=== PATIENT | male | born 1980 | race Hispanic/Latino ===

== ENCOUNTER 2017-08-09 16:29 | Emergency (ER) | payer OTHER ==
[~2017-08-09] VITALS: Ht 172.7 cm; Wt 104.5 kg
[2017-08-09 16:44] VITALS: BP 185/73; PULSE 100; RESP 16; O2SAT 97
--- NOTE | 2017-08-09 18:15 | ED.REPORT ---
HPI-Eye Problem Date of Service Aug 09, 2017 ED Provider: Lakeisha Willams History of Present Illness: 29-year-old male here for a right eye foreign body. He was walking today and is windy and he felt something fly into his eye. He has been trying to remove it with flushes and Q-tips and he has not been able to get it out. He sees a piece of white lint. Minimal eye pain. No visual disturbances. Nursing Notes Stated Complaint: SMALL PARTICLE IMBEDDED IN R/EYE Chief Complaint: Eye Nursing Notes Reviewed: Yes Allergies: Coded Allergies: No Known Allergies (Verified Allergy, Unknown, 08/09/17) Scheduled Erythromycin Ophth Oint (Erythromycin Ophth Oint) 3.5 Gm Oint...g. 1 APPL OP QID General Time Seen by MD: 17:46 Chief Complaint Right eye affected Hx Obtained From: Patient Arrived By: Walk-in Sudden in Onset?: Yes Onset Occurred: 1 - 4 hours ago Symptom Duration: Since onset Progression Since Onset: Unchanged Severity: Current: No pain currently Severity: Maximum: No pain Pertinent Negative: Pt denies other symptoms Recent Healthcare: No recent doctor visit Past Medical History Past Medical History denies Review of Systems Basic Review of Systems Respiratory: No shortness of breath, No cough, No wheeze Cardiovascular: No chest pain, No dyspnea on exertion, No orthopnea, No parox noct dyspnea, No palpitations GI: No abdominal pain, No anorexia, No nausea, No vomiting : No dysuria, No frequency Musculoskeletal: No extremity swelling, No extremity pain, Full range of motion , Joints NL Psychiatric: Normal thought content Eyes: Reports: Eye pain right Complete sys rev & neg: except as marked. Physical Exam Initial Vital Signs Vital Signs (First) Date Time Temp Pulse Resp B/P Pulse Ox O2 Delivery O2 Flow Rate FiO2 08/09/17 16:44 36.6 100 16 185/73 97 Initial VS: Reviewed, Vital signs normal General / Const: Well-developed, Well-nourished ENT: Mucous membranes moist, Conjunctiva normal, No scleral icterus Neck: Supple, Non-tender, Full range of motion Respiratory: Breath sounds normal, Clear to auscultation, No respiratory distress Cardiovascular: Regular rate & rhythm, Heart sounds normal, Intact distal pulses Skin: Warm, Dry, No cyanosis Neurologic: Alert, Oriented, Nonfocal Psychiatric: Mood/affect normal, Behavior normal, Normal thought content Head / Eyes: Normocephalic, PERRL, EOMI, No nystagmus, No periorbital redness, No periorbital swelling, No photophobia, No scleral icterus, Conjunctiva NL, Cornea clear, No corneal abrasion, Eyelids NL, Visual acuity NL No foreign body noted with initial exam. Patient looks in mirror and states that the foreign body noticed today is gone. fluoroscien stain, pinpoint small abrasion noted in Center of eye. No proparacaine was used per patient preference Re-Eval/Medical Decision Med Decision/Clinical Course Foreign body in eye, gone by time of evaluation. Corneal abrasion on examination. No visual changes. Discharge & Departure Shift Change Sign-Out Procedures: Results discussed Response to Therapy: Improved Primary Impression: Corneal abrasion Encounter type: initial encounter Laterality: right Qualified Code: S05.01XA - Injury of conjunctiva and corneal abrasion without foreign body, right eye, initial encounter Disposition: Home Discharge Condition All VS Reviewed: Yes Condition: Stable Patient Instructions: Corneal Abrasion (ED) Additional Instructions: Use topical antibiotics as prescribed. If you start getting eye pain, drainage or changes in vision need to follow up with the web merchant immediately or come to the ER. Otherwise follow-up with your PCP for recheck in a few days. Referrals: NOPCP (PCP) MEDHAT ANDERSON MD EDSupervising Provider for APC: Karri Landry MD Attending Statement I saw and evaluated the patient in conjunction with the GARMENT FOLDER. I agree with the plan and findings as documented above. In brief, 37-year-old male presenting to the ED for evaluation of a foreign body sensation in his eye. Well appearing, no acute distress. Nonlabored respirations. Good peripheral perfusion. RRR. No pain with extraocular movements , no obvious foreign body noted on examination, visual acuity intact. Fluorescein stain demonstrates small corneal abrasion. Given antibiotic drops as per above; plan discharge home w/ careful return precautions, close outpatient follow up. Patient agreeable to plan as stated, no further questions. Lakeisha Willams GARMENT FOLDER Aug 09, 2017 18:15 Karri Landry MD Aug 09, 2017 18:51
[2017-08-09] MEDS: Tetracaine 0.5% 4 mL Ophthalmic Solution RIGHT_EYE ONE ×2 (18:21→18:36)
[2017-08-09] MEDS ORDERED: Fluorescein 0.6 mg Ophthalmic Strip ONE (18:28)
[2017-08-09] MEDS ORDERED: ERYT1OIN7 OP (18:40)
[2017-08-09] MEDS ORDERED: Erythromycin 0.5% 1 Gm Ophthalmic Ointment RIGHT_EYE ONE (18:45)
== END 2017-08-09 18:57 | disposition home or self-care (01) ==
LOC: SED 16:29
DX: S05.01XA Injury of conjunctiva and corneal abrasion without foreign body, right eye, initial encounter (principal); W45.8XXA Other foreign body or object entering through skin, initial encounter; Y93.01 Activity, walking, marching and hiking; Y92.89 Other specified places as the place of occurrence of the external cause; Y99.8 Other external cause status